=== PATIENT | female | born 1975 | race Asian ===

== ENCOUNTER 2019-01-04 14:47 | Emergency (ER) | payer OTHER ==
[~2019-01-04] VITALS: Ht 154.9 cm; Wt 68.5 kg
--- NOTE | 2019-01-04 15:00 | NUR ---
C/O PALPITATION 15 MINS PRIOR TO ARRIVAL. HR > 150, SKIN INTACT, NO ACUTE DISTRESS NOTED. RAN OUT OF MEDICATION. HOOKED TO MONITOR. IV LINE ESTABLISHED, EKG DONE. READY FOR EVAL.
[2019-01-04] MEDS ORDERED: ADENOSINE 6 MG/2 ML VIAL ONE (15:09)
[2019-01-04] MEDS ORDERED: METOPROLOL TARTRATE 25 MG TABLET PO ONE (15:30)
[2019-01-04] MEDS ORDERED: METOPROLOL TARTRATE 25 MG TABLET ONE (15:32)
--- NOTE | 2019-01-04 15:54 | NUR ---
IV removed. Catheter intact and site benign. Pressure and 4x4 applied to site. No bleeding noted. Patient discharged to home in stable condition. Written and verbal after care instructions given. Patient verbalizes understanding of instruction.
[2019-01-04 15:57] VITALS: BP 115/78
== END 2019-01-04 15:57 | disposition home or self-care (01) ==
LOC: ER 14:50
DX: I47.1 Supraventricular tachycardia (principal); I10 Essential (primary) hypertension
CPT/HCPCS: 93005 ×2; 99283; J0153; J7030